=== PATIENT | female | born 1995 | race Caucasian/White ===

== ENCOUNTER 2017-07-02 09:21 | Emergency (ER) | payer BC, OTHER ==
[~2017-07-02] VITALS: Ht 167.6 cm; Wt 85.1 kg
[2017-07-02 09:24] VITALS: TEMP 36.8; Ht 167.6 cm; Wt 85.1 kg
[2017-07-02] MEDS ORDERED: IBUPROFEN 800 MG TAB PO STA (09:43)
[2017-07-02] MEDS ORDERED: BCPILLS PO (09:44)
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
[2017-07-02] MEDS ORDERED: IBUP-1451 PO (09:50)
[2017-07-02 10:20] VITALS: BP 152/98; PULSE 84; O2SAT 98
== END 2017-07-02 10:22 | disposition home or self-care (01) ==
LOC: C.EDB 09:27 → C.EDA 10:22
DX: S29.012A Strain of muscle and tendon of back wall of thorax, initial encounter (principal); V43.52XA Car driver injured in collision with other type car in traffic accident, initial encounter; Y92.411 Interstate highway as the place of occurrence of the external cause; Z80.9 Family history of malignant neoplasm, unspecified; Z79.3 Long term (current) use of hormonal contraceptives

== ENCOUNTER → 2018-02-26 | Outpatient (CLI) | payer BC ==
[~2018-02-26] MED LIST: BCPILLS PO
== END | disposition home or self-care (01) ==
LOC: C.LAB1850 13:40
PROVIDERS: ATTEND Physician Assistant
DX: R53.83 Other fatigue (principal)